=== PATIENT | female | born 1995 | race Caucasian/White ===

== ENCOUNTER 2018-03-03 12:22 | Outpatient (CLI) | payer OTHER, SELFPAY ==
[2018-03-03 13:42] LABS: ALT 19 U/L (12-78); AST 12 U/L (15-37); Albumin 4.2 g/dL (3.4-5.0); Alkaline Phosphatase 64 U/L (46-116); Bilirubin, Direct 0.26 mg/dL (0.00-0.20); Bilirubin, Total 1.2 mg/dL (0.2-1.0); TSH (W/Ref FT4) 3.41 uIU/mL (0.358-3.74)
== END 2018-03-03 12:42 ==
PROVIDERS: PCP Nurse Practitioner Family; Visit Provider Obstetrics & Gynecology Gynecology
DX: Z00.00 Encounter for general adult medical examination without abnormal findings (principal); E03.9 Hypothyroidism, unspecified
CPT/HCPCS: 36415; 80076; 84443

== ENCOUNTER 2018-12-03 15:59 | Outpatient (CLI) | payer OTHER, SELFPAY ==
[2018-12-03 17:14] LABS: TSH (W/Ref FT4) 3.77 uIU/mL (0.358-3.74)
== END 2018-12-03 16:19 ==
PROVIDERS: PCP Nurse Practitioner Family; Visit Provider Obstetrics & Gynecology Gynecology
DX: E03.9 Hypothyroidism, unspecified (principal)
CPT/HCPCS: 36415; 84439; 84443

== ENCOUNTER 2019-01-17 14:47 | Outpatient (CLI) | payer OTHER, SELFPAY ==
[2019-01-17 15:48] LABS: Abs Immature Grans 0.03 k/cumm (0.0-0.09); Absolute Basophil Count 0.02 k/cumm (0.0-0.2); Absolute Eosinophil Count 0.08 k/cumm (0.0-0.7); Absolute Lymphocyte Count 1.79 k/cumm (1.2-3.4); Absolute Monocyte Count 0.49 k/cumm (0.11-0.7); Absolute Neutrophil Count 7.43 k/cumm (1.2-6.7); Basophils % 0.2; Eosinophils % 0.8; HCT 34.3 % (36.0-46.0); HGB 11.4 g/dL (12.0-15.5); Immature Grans % 0.3; Lymphocytes % 18.2; Mean Corp. HGB Concentration 33.2 g/dL (32.0-36.0); Mean Corpuscular Hemoglobin 28.1 pg (27.0-33.0); Mean Corpuscular Volume 84.5 fL (80-95); Mean Platelet Volume 10.1 fL (8.0-11.0); Neutrophils % 75.5; Platelet Count 345 x1000/uL (130-400); RBC 4.06 m/cumm (4.00-5.20); RBC Distribution Width 13.4 % (11.7-14.6); White Blood Cell Count 9.84 k/cumm (4.4-10.8)
[2019-01-17 16:19] LABS: TSH (W/Ref FT4) 3.22 uIU/mL (0.36-3.74)
[2019-01-18 10:10] LABS: HIV-1/2 Ag & Ab Screen Negative (NEGAT)
[2019-01-18 10:11] LABS: Hepatitis B Surface Ag Negative (NEGAT); Hepatitis C Ab w Rflx HCV PCR Negative (NEGAT)
[2019-01-18 10:54] LABS: Varicella IgG Antibody Positive
[2019-01-18 14:23] LABS: Syphilis Total Ab w/Reflex Nonreactive (Nonreactive)
[2019-01-19 11:54] LABS: Rubella IgG Ab (UVM) Positive
== END 2019-01-17 15:07 ==
PROVIDERS: PCP Nurse Practitioner Family; Visit Provider Advanced Practice Midwife
DX: Z34.91 Encounter for supervision of normal pregnancy, unspecified, first trimester (principal); Z11.59 Encounter for screening for other viral diseases; Z11.4 Encounter for screening for human immunodeficiency virus [HIV]; Z01.84 Encounter for antibody response examination
CPT/HCPCS: 36415; 86787; 86803; 86850; 86900; 86901; 87340; 87389; 84443; 85025; 86762; 86780

== ENCOUNTER 2019-01-17 18:15 | Outpatient (REF) | payer OTHER, SELFPAY ==
[2019-01-17 17:33] LABS: *AMPHETAMINES SCREEN URINE Negative (Negative); *BARBITURATES SCREEN URINE Negative (Negative); *BENZODIAZEPINES SCREEN URINE Negative (Negative); Cannabinoids THC Negative (Negative); Cocaine Screen,Urine Negative (Negative); METHADONE URINE SCREEN Negative (Negative); OPIATES URINE SCREEN Negative (Negative)
[2019-01-17 17:34] LABS: Tricyclic Antidepressants Negative (Negative)
[2019-01-20 11:52] LABS: Buprenorphine Negative; Norbuprenorphine Negative
== END 2019-01-17 18:35 ==
LOC: LBN 18:15
PROVIDERS: PCP Nurse Practitioner Family; Visit Provider Advanced Practice Midwife
DX: Z34.90 Encounter for supervision of normal pregnancy, unspecified, unspecified trimester (principal)
CPT/HCPCS: 80307; 87086

== ENCOUNTER 2019-02-10 03:51 | Outpatient (CLI) | payer OTHER, SELFPAY ==
--- NOTE | 2019-02-10 15:15 | DI.US_ITS ---
SYMPTOMS/DIAGNOSIS: 18-WEEK ANATOMY SURVEY, Z34.90 OB ULTRASOUND: Predicted Gestational Age: Indication/History: 18+3 Wks Range: 17+3 to 19+3 Prior US done on: Determined by: First US LMP History EDC by prior US: 07/11/2019 For multiple gestations: Baby PLACENTA: Grade: 0-I Location: Anterior X Posterior PRESENTATION: RT LT LOW LYING PREVIA Cephalic Trans (Head RT LT ) Varied X Breech BIOMETRY: Anatomy Identified: BPD: 38 mm 17+4 wks 4-chamber Heart X Heart Rate 149 BPM HC: 142 mm 17+3 wks LVOT X Post Fossa X AC: 122 mm 17+6 wks RVOT X Ventricles X FL: 24 mm 17+1 wks Stomach X Nose X Bladder X Lips X Cisterna Magna: 3.6 mm CI: 84.4 Kidneys X Palate X Cerebellum: 1.74 cm 3-vessel cord X Spine X EFW: 200 grms 8% Cord Insertion X NS= not seen Composite Age (US) 17+4 wks Many abnormalities cannot be diagnosed. A normal exam does not exclude congenital abnormality. EDC by US: 07/17/2019 Amniotic Fluid Index: Normal TECHNOLOGIST COMMENTS: 0 pounds 7 ounces RUQ: LUQ: RLQ: LLQ: Total: cm Biophysical Profile: Score 0/2 EVA (>2cm) Respirations (>30 sec) Body flexion/extension Extremity flexion/extension TOTAL SCORE RADIOLOGIST COMMENTS: OB ultrasound was performed utilizing second trimester protocol. biometry is consistent with gestational age of 17 weeks 4 days and an EDC of 07/17/19. Placenta is fundal and posterior with no evidence of placenta previa. There is a normal quantity of amniotic fluid. anomaly screen is within normal limits. cardiac activity noted at a rate of 149 bpm.
== END 2019-02-10 04:11 ==
PROVIDERS: PCP Nurse Practitioner Family; Visit Provider Advanced Practice Midwife
DX: Z34.92 Encounter for supervision of normal pregnancy, unspecified, second trimester (principal)
CPT/HCPCS: 76805

== ENCOUNTER 2019-04-29 07:21 | Outpatient (CLI) | payer OTHER, SELFPAY ==
[2019-04-29 08:27] LABS: HCT 36.5 % (36.0-46.0); HGB 11.7 g/dL (12.0-15.5); Mean Corp. HGB Concentration 32.1 g/dL (32.0-36.0); Mean Corpuscular Hemoglobin 28.3 pg (27.0-33.0); Mean Corpuscular Volume 88.2 fL (80-95); Mean Platelet Volume 9.9 fL (8.0-11.0); Platelet Count 275 x1000/uL (130-400); RBC 4.14 m/cumm (4.00-5.20); White Blood Cell Count 9.44 k/cumm (4.4-10.8)
[2019-04-29 08:34] LABS: Glucose,1 Hr (Glucola) 125 mg/dL (80-140)
[2019-04-29 10:04] LABS: FREE T4 1.09 ng/dL (0.76-1.46); TSH 2.27 uIU/mL (0.36-3.74)
== END 2019-04-29 07:41 ==
PROVIDERS: PCP Nurse Practitioner Family; Visit Provider Advanced Practice Midwife
DX: O99.283 Endocrine, nutritional and metabolic diseases complicating pregnancy, third trimester (principal)
CPT/HCPCS: 36415; 82950; 85027; 84439; 84443

== ENCOUNTER 2019-05-26 15:46 | Outpatient (CLI) | payer OTHER, SELFPAY | END 2019-05-26 16:06 | PROVIDERS: PCP Nurse Practitioner Family; Visit Provider Advanced Practice Midwife | DX: O76 Abnormality in fetal heart rate and rhythm complicating labor and delivery (principal); Z3A.33 33 weeks gestation of pregnancy | CPT/HCPCS: 59025 ==

== ENCOUNTER 2019-06-13 17:23 | Outpatient (REF) | payer OTHER, SELFPAY | END 2019-06-13 17:43 | LOC: LBN 17:23 | PROVIDERS: PCP Nurse Practitioner Family; Visit Provider Advanced Practice Midwife | DX: Z34.93 Encounter for supervision of normal pregnancy, unspecified, third trimester (principal); Z36.85 Encounter for antenatal screening for Streptococcus B | CPT/HCPCS: 87081 ==

== ENCOUNTER 2019-07-09 10:51 | Outpatient (CLI) | payer OTHER, SELFPAY ==
[2019-07-09 12:01] LABS: TSH (W/Ref FT4) 3.56 uIU/mL (0.36-3.74)
== END 2019-07-09 11:11 ==
PROVIDERS: PCP Nurse Practitioner Family; Visit Provider Advanced Practice Midwife
DX: O99.283 Endocrine, nutritional and metabolic diseases complicating pregnancy, third trimester (principal); E03.9 Hypothyroidism, unspecified
CPT/HCPCS: 36415; 84443

== ENCOUNTER 2019-07-19 09:00 | Outpatient (CLI) | payer OTHER, SELFPAY | END 2019-07-19 09:20 | PROVIDERS: PCP Nurse Practitioner Family; Visit Provider Advanced Practice Midwife | DX: O48.0 Post-term pregnancy (principal); Z3A.41 41 weeks gestation of pregnancy | CPT/HCPCS: 59025 ==

== ENCOUNTER 2019-07-22 11:27 | Inpatient (IN) | payer OTHER, SELFPAY ==
[2019-07-22 11:51] LABS: HCT 39.1 % (36.0-46.0); HGB 13.1 g/dL (12.0-15.5); Mean Corp. HGB Concentration 33.5 g/dL (32.0-36.0); Mean Corpuscular Hemoglobin 29.2 pg (27.0-33.0); Mean Corpuscular Volume 87.3 fL (80-95); Mean Platelet Volume 11.1 fL (8.0-11.0); Platelet Count 299 x1000/uL (130-400); RBC 4.48 m/cumm (4.00-5.20); RBC Distribution Width 13.7 % (11.7-14.6); White Blood Cell Count 10.56 k/cumm (4.4-10.8)
[2019-07-22] MEDS: miSOPROStol 25 MCG TAB 50 MCG PO (11:55)
[2019-07-22] MEDS: Oxytocin 10 UNITS/ML VIAL (20:00)
[2019-07-22] MEDS: Lidocaine 1% Multi-Dose 20 ML VIAL (20:15)
[2019-07-23 06:42] LABS: HCT 35.7 % (36.0-46.0); Mean Corp. HGB Concentration 33.6 g/dL (32.0-36.0); Mean Corpuscular Hemoglobin 29.1 pg (27.0-33.0); Mean Corpuscular Volume 86.7 fL (80-95); Mean Platelet Volume 10.8 fL (8.0-11.0); Platelet Count 309 x1000/uL (130-400); RBC 4.12 m/cumm (4.00-5.20); RBC Distribution Width 13.5 % (11.7-14.6); White Blood Cell Count 19.76 k/cumm (4.4-10.8)
[2019-07-23] MEDS: Levothyroxine 75 MCG TAB PO (07:11)
[2019-07-23] MEDS: Hamamelis Leaf/Glycerin 100 EACH BOX PR (07:12)
[2019-07-24] MEDS: Levothyroxine 75 MCG TAB PO (07:56)
== END 2019-07-24 14:20 | disposition home or self-care (01) | DRG 806 ==
LOC: OBS 11:49
PROVIDERS: Admitting Provider Advanced Practice Midwife; PCP Nurse Practitioner Family; Visit Provider Advanced Practice Midwife
DX: O48.0 Post-term pregnancy (principal); O71.4 Obstetric high vaginal laceration alone; Z37.0 Single live birth; Z3A.41 41 weeks gestation of pregnancy; O70.1 Second degree perineal laceration during delivery; O76 Abnormality in fetal heart rate and rhythm complicating labor and delivery; O69.1XX0 Labor and delivery complicated by cord around neck, with compression, not applicable or unspecified; O99.284 Endocrine, nutritional and metabolic diseases complicating childbirth; E03.9 Hypothyroidism, unspecified
CPT/HCPCS: 36415; 85027; 86850; 86900; 86901; 59025; J2590; J3490

== ENCOUNTER 2019-09-27 01:18 | Outpatient (CLI) | payer OTHER, SELFPAY ==
[2019-09-27 15:59] LABS: FREE T4 1.69 ng/dL (0.76-1.46); TSH 0.01 uIU/mL (0.36-3.74)
[2019-09-27 21:24] LABS: T3,Free 7.7 pg/mL (2.8-5.3)
== END 2019-09-27 01:38 ==
PROVIDERS: PCP Nurse Practitioner Family; Visit Provider Advanced Practice Midwife
DX: E03.9 Hypothyroidism, unspecified (principal)
CPT/HCPCS: 36415; 84439; 84443; 84481

== ENCOUNTER 2019-11-21 01:59 | Outpatient (CLI) | payer OTHER, SELFPAY | END 2019-11-21 02:19 | PROVIDERS: Advanced Practice Midwife; PCP Nurse Practitioner Family; Visit Provider Advanced Practice Midwife | DX: E03.9 Hypothyroidism, unspecified (principal) | CPT/HCPCS: 36415; 84443 ==

== ENCOUNTER 2020-04-24 09:57 | Outpatient (CLI) | payer OTHER, SELFPAY ==
[2020-04-24 14:25] LABS: TSH (W/Ref FT4) 4.33 uIU/mL (0.36-3.74)
== END 2020-04-24 10:17 ==
PROVIDERS: PCP Nurse Practitioner Family; Visit Provider Nurse Practitioner Women's Health
DX: R63.4 Abnormal weight loss (principal)
CPT/HCPCS: 36415; 84439; 84443

== ENCOUNTER 2020-05-16 03:11 | Outpatient (CLI) | payer OTHER, SELFPAY ==
[2020-05-16 09:50] LABS: Abs Immature Grans 0.05 10^3/uL (0.0-0.06); Absolute Basophil Count 0.02 10^3/uL (0.0-0.2); Absolute Eosinophil Count 0.13 10^3/uL (0.0-0.7); Absolute Lymphocyte Count 1.84 10^3/uL (1.2-3.4); Absolute Monocyte Count 0.43 10^3/uL (0.1-0.8); Basophils % 0.2; Eosinophils % 1.5; HCT 37.1 % (36.0-46.0); HGB 12.5 g/dL (11.2-15.7); Immature Grans % 0.6; Lymphocytes % 21.5; MCH 28.7 pg (27.0-33.0); MCHC 33.7 % (32.0-36.0); MCV 85.3 fL (80-95); MPV 9.9 fL (8.0-11.0); Neutrophils % 71.2; Nucleated RBC 0 %; Platelet Count 365 10^3/uL (130-400); RBC 4.35 10^6/uL (3.93-5.22); RDW 12.7 % (11.7-14.6); RDW-SD 39.7 fL; WBC 8.57 10^3/uL (4.4-10.8)
[2020-05-17 09:50] LABS: HIV-1/2 Ag & Ab Screen Negative (Negative)
[2020-05-17 09:55] LABS: Varicella IgG Antibody Positive (See Note)
[2020-05-17 09:58] LABS: Rubella IgG Ab (UVM) Positive (See Note)
[2020-05-17 10:07] LABS: Hepatitis C Ab w Rflx HCV PCR Negative (Negative)
[2020-05-17 10:16] LABS: Hepatitis B Surface Ag Negative (Negative)
[2020-05-18 11:18] LABS: Syphilis Total Ab w/Reflex Nonreactive (Nonreactive)
== END 2020-05-16 03:31 ==
PROVIDERS: PCP Nurse Practitioner Family; Visit Provider Advanced Practice Midwife
DX: Z34.91 Encounter for supervision of normal pregnancy, unspecified, first trimester (principal); Z11.59 Encounter for screening for other viral diseases; Z11.4 Encounter for screening for human immunodeficiency virus [HIV]; Z01.84 Encounter for antibody response examination; Z3A.14 14 weeks gestation of pregnancy
CPT/HCPCS: 36415; 86787; 86803; 86850; 86900; 86901; 87340; 87389; 85025; 86762; 86780

== ENCOUNTER 2020-05-23 16:24 | Outpatient (REF) | payer OTHER, SELFPAY ==
--- NOTE | 2020-05-23 15:50 | PAPFT_PTH ---
PATIENT: Anel Frazier LOC: [facility] U#:[id number] AGE/SX: 25/F ROOM: RE05/23/[address]: Tameka Van : 1995 BED: DIS: 05/23/2020 SPEC #: [id number] RECD: 05/23/20 18:06 STATUS: HESHAM REQ #: [id number] EMILIA: 05/23/20 15:[address]: Tameka Van DEPT: [facility] Cytology RECD BY: Hilary Briceño ENTERED: 05/23/20 18:06 SP TYPE: PAPFT OTHR DR: Aisha Brewster Tissues: 1 - CX/ENDOCX FOR PAP SMEARS Procedures: PAP THIN PREP/UVM Screening Comments: [id number] (CHLAMYDIA/GC)
[2020-05-23 17:22] LABS: *AMPHETAMINES SCREEN URINE Negative (Negative); *BARBITURATES SCREEN URINE Negative (Negative); *BENZODIAZEPINES SCREEN URINE Negative (Negative); Cannabinoids THC Negative (Negative); Cocaine Screen,Urine Negative (Negative); METHADONE URINE SCREEN Negative (Negative); OPIATES URINE SCREEN Negative (Negative)
[2020-05-23 17:24] LABS: Tricyclic Antidepressants Negative (Negative)
[2020-05-24 15:13] LABS: Chlamydia Result Negative (Negative); GC Result Negative (Negative)
[2020-05-29 13:31] LABS: Buprenorphine Negative; Norbuprenorphine Negative
== END 2020-05-23 16:44 ==
LOC: LBN 16:24
PROVIDERS: Advanced Practice Midwife; PCP Nurse Practitioner Family; Visit Provider Advanced Practice Midwife
DX: Z34.91 Encounter for supervision of normal pregnancy, unspecified, first trimester (principal); Z11.3 Encounter for screening for infections with a predominantly sexual mode of transmission; Z12.4 Encounter for screening for malignant neoplasm of cervix; Z3A.14 14 weeks gestation of pregnancy
CPT/HCPCS: 80307; 87491; 87591; 88142; 87086

== ENCOUNTER 2020-06-20 02:14 | Outpatient (CLI) | payer OTHER, SELFPAY ==
--- NOTE | 2020-06-20 08:00 | DI.US_ITS ---
EXAM: US OB 2-3 TRIMESTER CLINICAL HISTORY: , anatomy scan,Z34.90. TECHNIQUE: Transabdominal obstetrical ultrasound was performed. COMPARISON: US US PELVIS LIMITED from 05/24/2020 FINDINGS: There is a single viable intrauterine gestation with cardiac activity identified-141 bpm. Amniotic fluid: There is a normal amount of amniotic fluid. Placental location: The placenta is posterior grade 1,with no evidence of placenta previa. ANATOMY: A 3 vessel umbilical cord is seen. A four-chamber cardiac view was obtained. Right and left ventricular outflow tracts were imaged. There are no obvious abnormalities of the spinal column evident. There is no obvious abnormal ity of the anterior abdominal wall. stomach and urinary bladder are identified and there is no evidence of hydronephrosis. No abnormalities of the upper lip region are identified. No evidence of choroid plexus cysts i n the brain. Dating parameters place this at approximately 20 weeks gestational age. BPD measures 20 weeks and 5 days HC measures 20 weeks and 1 day AC measures 19 weeks 0 days FL measures 20 weeks and 1 day Estimated weight is 302 gm-0 pounds 11 ounces Fetus is at the 80th percentile on the Hadlock scale. IMPRESSION:: Single viable intrauterine gestation which is approximately 20 weeks gestational age, i mplying an YVETTE of November 07, 2020. There are no obvious anomalies evident on today's study. The placenta is posterior with no evidence of placenta previa. There is a normal amount of amniotic fluid. DATA REPOSITORY:
== END 2020-06-20 02:34 ==
PROVIDERS: PCP Nurse Practitioner Family; Visit Provider Advanced Practice Midwife
DX: Z34.92 Encounter for supervision of normal pregnancy, unspecified, second trimester (principal)
CPT/HCPCS: 76805

== ENCOUNTER 2020-07-04 03:22 | Outpatient (CLI) | payer OTHER, MEDICAID, SELFPAY ==
[2020-07-04 12:26] LABS: FREE T4 1.13 ng/dL (0.76-1.46); TSH 2.79 uIU/mL (0.36-3.74)
== END 2020-07-04 03:42 ==
PROVIDERS: PCP Nurse Practitioner Family; Visit Provider Advanced Practice Midwife
DX: E03.9 Hypothyroidism, unspecified (principal)
CPT/HCPCS: 36415; 84439; 84443

== ENCOUNTER 2020-08-28 03:47 | Outpatient (CLI) | payer OTHER, MEDICAID, SELFPAY ==
[2020-08-28 16:03] LABS: Glucose,1 Hr (Glucola) 134 mg/dL (80-140)
[2020-08-28 16:19] LABS: HCT 35.6 % (36.0-46.0); HGB 11.6 g/dL (11.2-15.7); MCHC 32.6 % (32.0-36.0); MPV 10.2 fL (8.0-11.0); Platelet Count 273 10^3/uL (130-400); RDW 13.4 % (11.7-14.6); RDW-SD 43.9 fL; WBC 10.02 10^3/uL (4.4-10.8)
[2020-08-28 17:14] LABS: FREE T4 1.16 ng/dL (0.76-1.46); TSH 2.69 uIU/mL (0.36-3.74)
== END 2020-08-28 03:48 | disposition home or self-care (01) ==
LOC: LBO 03:47
PROVIDERS: PCP Nurse Practitioner Family; Visit Provider Advanced Practice Midwife
DX: O99.283 Endocrine, nutritional and metabolic diseases complicating pregnancy, third trimester (principal); E03.9 Hypothyroidism, unspecified
CPT/HCPCS: 36415; 82950; 85027; 84439; 84443

== ENCOUNTER 2020-09-25 01:30 | Outpatient (CLI) | payer OTHER, MEDICAID, SELFPAY ==
--- NOTE | 2020-09-25 06:45 | DI.US_ITS ---
EXAM: US OB EVA WEIGHT CLINICAL HISTORY: h/o previous IUGR,z87.59 TECHNIQUE: Ultrasound performed using standard protocol. COMPARISON: US US OB 2-3 TRIMESTER from 06/20/2020 FINDINGS: Ob ultrasound was performed utilizing 3rd trimester protocol. biometry is consistent with gestational age of 32 weeks 4 days and an EDC of November 16. The estimated weight is 1962 grams which is at the 27th percentile for predicted gestational ag e. There is visually a normal quantity of amniotic fluid and the EVA is 19. heart rate is 125 BPM . Placenta is posterior with no placenta previa. IMPRESSION: DATA REPOSITORY:
== END 2020-09-25 01:50 ==
PROVIDERS: PCP Nurse Practitioner Family; Visit Provider Advanced Practice Midwife
DX: Z34.93 Encounter for supervision of normal pregnancy, unspecified, third trimester (principal); Z3A.32 32 weeks gestation of pregnancy; Z87.59 Personal history of other complications of pregnancy, childbirth and the puerperium
CPT/HCPCS: 76816

== ENCOUNTER 2020-10-17 11:47 | Outpatient (REF) | payer OTHER, MEDICAID, SELFPAY ==
[2020-10-17 11:27] LABS: *AMPHETAMINES SCREEN URINE Negative (Negative); *BARBITURATES SCREEN URINE Negative (Negative); *BENZODIAZEPINES SCREEN URINE Negative (Negative); Cannabinoids THC Negative (Negative); Cocaine Screen,Urine Negative (Negative); METHADONE URINE SCREEN Negative (Negative); OPIATES URINE SCREEN Negative (Negative); Tricyclic Antidepressants Negative (Negative)
[2020-10-20 09:47] LABS: Buprenorphine Negative ng/mL (Cutoff: 5.0); Norbuprenorphine Negative ng/mL (Cutoff: 2.5)
== END 2020-10-17 11:48 | disposition home or self-care (01) ==
LOC: LBN 11:47
PROVIDERS: PCP Nurse Practitioner Family; Visit Provider Advanced Practice Midwife
DX: Z34.93 Encounter for supervision of normal pregnancy, unspecified, third trimester (principal); Z36.85 Encounter for antenatal screening for Streptococcus B; Z3A.36 36 weeks gestation of pregnancy
CPT/HCPCS: 80307; 87081

== ENCOUNTER 2020-10-29 15:56 | Outpatient (CLI) | payer OTHER, MEDICAID, SELFPAY ==
[2020-10-29 16:12] VITALS: BP 123/76; PULSE 72; TEMP 36.7
[2020-10-29 16:22] VITALS: BP 123/76; PULSE 72
--- NOTE | 2020-10-29 16:35 | PDOC.NST_ITS ---
Date of service: 10/29/20 Time of Service: 16:15 NST Evaluation Reason for NST Reasons for Nonstress Test: DECREASED MOVEMENT Gestational Age Gestational Age in Weeks and Days: 37 Weeks and 5Days Test and Monitor Explained Test/Monitor Explained: Test Explained, Monitor Explained and Patient Verbalized Understanding Vital Signs Blood Pressure: 123/76 Pulse: 72 Temperature: 98.1 F Urine Results Urine Protein: Negative Urine Ketones: Negative Urine Glucose: Negative Urine Blood: Negative NST Information Date on Monitor: 10/29/20 Time on Monitor: 16:03 Date off Monitor: 10/29/20 Time off Monitor: 16:28 Total Time on Monitor: 25 NST Interventions: None Contraction Frequency: 6-8 NST Evaluation Patient States Movement: Present FHR Baseline: 125 Variability: Moderate 6-25 bpm Accelerations: 15x15 Decelerations: None NST Results: Reactive Note NST Note Note: Anel presented after her office visit due to CNM concern that baby did not respond to abdominal palpation to illicit movement and difficulty hearing any FHR variation with doppler. NST is immediately reactive and reassuring and patie nt is aware of and marking movement. She is aware of abdominal tightening when toco shows contractions but she is not uncomfortable with them. Denies LOF or bleeding. Will keep next scheduled appointment or call Web Coordinator cotton inspector as needed for signs of labor or concerns for decreased movement. JOSE MANUEL NST Reviewed and Verified by: Tameka Espinoza
[2020-10-29 16:38] VITALS: BP 123/76; PULSE 72; TEMP 36.7
== END 2020-10-29 16:30 | disposition home or self-care (01) ==
LOC: BCD 15:59 → OBS 16:11
PROVIDERS: PCP Nurse Practitioner Family; Visit Provider Advanced Practice Midwife
DX: O36.8130 Decreased fetal movements, third trimester, not applicable or unspecified (principal); Z3A.37 37 weeks gestation of pregnancy
CPT/HCPCS: 59025

== ENCOUNTER 2020-11-03 17:00 | Inpatient (IN) | payer OTHER, MEDICAID, SELFPAY ==
[2020-11-03] VITALS (9 sets, daily range): BP systolic 106–148; BP diastolic 54–80; PULSE 62–98; RESP 18; TEMP 37–37.3
[2020-11-03] MEDS: Oxytocin 10 UNITS/ML VIAL IM (17:28)
--- NOTE | 2020-11-03 18:04 | HPE_ITS ---
Date of service: 11/03/20 Time of Service: 18:04 Assessment and Plan Assessment and plan (1) Spontaneous onset of labor: Status: Acute Assessment and plan: Admit to Center. Anel had apporoximately 3 contractions upon arrival and ruptured her membranes spontaneously and delivered precipitously attended by Marian Fritz RN. The cord was clamped and cut by Marian HERNANDEZ and I arrived shortly after the cord was cut. OB-HPI Labor/Delivery History of Present Illness Reason for Visit: labor Chief Complaint: Uterine Contractions. YVETTE Calculator Estimated Delivery Date Method Current WG Current Estimate 11/14/20 LMP (Certain) 38w 3d Other Estimates 11/10/20 Ultrasound #1 39w 0d Comments: I received a page at 1630 from Anel stating and that she was headed to the center. I attempted to call her but got her voicemail. I called her a few minutes later and she said that her contractions were 5 minutes apart but some were mild. She was pushing on arrival and was examined by the RN and she was fully dilated. She delivered less than ten minutes after arrival at the center at 1708. ( see delivery note) History of Present Expected Delivery Route/Plan - CNM FOB/ - Kostas Frazier BB yes to circ Desires to use the labor tub, open to waterbirth GBS neg Specific Issues/Plan 1. Hypothyroidism, on levothyroxine 75 mcg qd (increased from 50 mcg 04/24/20) 2a. TSH/T4 end of June 2020, nml results 07/04: TSH 2.79/T4 1.13 2b. TSH/T4 third trimester (28 wks) TSH 2.69/T4 1.16 2. Close spacing, conceived at 7 months , planned 3. Dating sono by Dr. Mccloud revealed heart shaped uterus, baby located on left side 4. Vaginal septum discovered at last delivery, vaginal repair done with CNRamon and 4a. Will perform careful vaginal inspection next visit (05/23) and PAP if not painful 4b. [facility] 4c. Declines US at [facility], pelvic exam 05/23 WNL - consult w/Dr. Varghese, Sono scheduled for 15 wks for uterine anatomy, 19 week anatomy scan at 4d. 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 5. Hx IUGR ( at 41 wks). Will discuss indication for growth scans in third trimester, discussed with patient , MD consult re: antepartum testing schedule. 5a. per MD consult, serial growth scans in third trimester, 32 and 36 wk 5b. 32 weeks - EVA 19, 27%ile, repeat at 36 wks 5c. On 10/09, pt declines 36 wk sono, will consent to 2nd EFW if exam indicates need. 6. Declines genetic testing. 7. Plans to receive Covid vaccine. On 10/09, has rec'ed first dose Moderna, see PN narrative [facility] Medical History (Updated 11/03/20 @ 18:05 by Tameka Van CNM) 2 weeks follow-up History of transverse vaginal septum bissected spontaneously with vaginal delivery 05/27 Hypothyroid Dx 2015. Rx with Levoxyl. 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 Family History (Updated 01/17/19 @ 13:30 by Lexi Aguilar LPN) Mother Mental disorder szichophrenic Maternal Grandmother Diabetes Diet controlled Paternal Grandfather Diabetes Insulin dependent Maternal Grandfather Hypertension Social History (Updated 01/17/19 @ 13:32 by Lxei Aguilar LPN) Smoking/Tobacco Use Status: Never Smoking risk assessment performed?: Yes Alcohol Intake: former Details: Prior to knowledge of , and then only 1 or 2 drinks occaisionally Drug use: Never Substance use type: does not use Female Reproductive History Menstrual Age of Menarche: 12 Duration of menses: 3-5 days control method: none History History 2 Para 1 Hx # Term Pregnancies 1 Multiple births 0 Hx # Pregnancies 0 Ectopic pregnancies 0 AB induced 0 Hx Number of Living Children 1 AB spontaneous 0 Past Pregnancies Del. Date GA/Weeks # Outcome Route Wgt Sex Labor Lgth Anesthes ia Location Prov Complic 07/22/19 41 No Successful vaginal 5 lb 14 oz Male 3hrs 58 min PETROS Kitchen Delivery Date: 07/22/19 Patient induced post-dates; tight nuchal cord; 2nd degree perineal laceration repaired. vaginal septum noted during second stage, bisected spontaneously with . Mulkern,Tameka Meds Allergies and Home Medications Allergies Allergy/AdvReac Type Severity Reaction Status Date / Time No Known Drug Allergies Allergy Verified 10/29/20 15:30 Home Medications Medication Instructions Recorded Confirmed Type multivitamin [Multi-Vitamin Daily] 1 ea PO DAILY 05/22/16 05/23/20 History vitamin B complex 1 tab PO DAILY tab 01/17/19 05/23/20 History prenat.vits,deny,[id number]-[id number] 1 tab PO DAILY 03/11/19 05/23/20 History levothyroxine 75 mcg tablet 75 mcg PO DAILY #90 tab 04/24/20 05/23/20 Rx Exam Physical Exam Vital signs: Pulse BP 71 113/74 11/03/20 18:01 11/03/20 18:01 Detailed Labor and Delivery Exam Campbell Score: Cervical Points Exam 0 1 2 3 Dilation Closed 1-2cm 3-4 cm 5-6cm Effacement 0-30% 40-50% 60-70% 80% Consistency Firm Medium Soft Station -3 -2 -1,0 +1,+2 Position Posterior Mid Anterior Fetus A Date of Membrane Rupture: 11/03/20 Time of Membrane Rupture: 17:08 Results Results Group Beta Strep: Negative Risk Assessment Risk for Shoulder Dystocia Historical/Initial OB: NEGATIVE FOR: Pelvic Abnormality, Pre- BMI>30, Previous Shoulder Dystocia or Previous Macrosomia 40 Weeks: NEGATIVE FOR: EFW> 4500 gms, Maternal Weight Gain >40lb or Post Dates Increased Risk?: No Risk for Pre-Eclampsia Daily Dose ASA Indicated: No Yes, if one or more: NEGATIVE FOR: Hx Pre-E/Gest HTN, Chronic HTN, Multiple Gestation, Pre-gestational DM, Renal Disease, Systemic Lupus or APA Syndrome Yes, if 2 or more: POSITIVE FOR: Previous IUGR; NEGATIVE FOR: Nulliparity, Age>= 35 yrs, >10yr btwn pregnancies, BMI>30, ethinicty or Mother/Sister w/ Pre-E Risk for Post- Hemorrhage Initial: NEGATIVE FOR: Multiple Gestation, Previous PPH, Known Clotting Deficiency, Grand Multiparity or Anticoagulation At Risk?: No Risks Reviewed Risks Reviewed Upon Admission: Yes
--- NOTE | 2020-11-03 18:25 | W.OBDELIVERY ---
Date of service: 11/03/20 Time of Service: 18:25 OB Labor/ Delivery Information Baby A Delivery Delivery Method: Spontaneaous Presentation: Cephalic Cephalic Position: Vertex Vertex Position: Right Occipital Anterior Cord Description-Baby A: 3 Vessels Amniotic Fluid: Clear Estimated Blood Loss: 500 Delivery Outcome: Liveborn Providers Nurse: Marian Fritz Nurse: Arianna Cook Labor/Delivery Information Number of Babies in Womb: 1 Steroids Given: None Reason Steroids Not Administered: N/A Group Beta Strep: Negative Antibiotics Administered: No Rubella Status: Immune Blood Type: O+ Varicella Immunity: Immune Medication in Delivery: none Maternal Complications: None Shoulder Dystocia: No Note: Anel was pushing on arrival and ruptured her membranes spontaneously and delivered on her hands and knees attended by Marian Fritz RN. FHTs were not obtained prior to delivery due to precipitous delivery on arrival. Spontaneous delivery of male infant delivered in CHRISTINA position. Baby was placed on mother's abdomen and dried and stimulated. Spontaneous cry. Cord was clamped and cut by Marian Fritz. I arrived after the cord was clamped. The placenta delivered spontaneously and appears to by intact with a three vessel cord. Pitocin 10 units was administered after delivery of the placenta. The perineum was inspected and it was small but appears to be intact with a three vessel cord. The baby did breastfeed well. She was having a trickle of bright blood and the right horn of her bicornuate uterus was massaged by bimanual exam assisted by the RN for a large amount of clots. The uterus after massage, was 2 FB below umbilicus and firm. cytotec 400 Mcg given PO. After delivery, Mother and baby Lambert and father of the baby were stable and bonding well in the delivery room and there were no complications. Stages of Labor Onset of Labor Date: 11/02/20 Onset of Labor Time: 19:58 Complete Dilatation Date: 11/03/20 Complete Dilatation Time: 17:00 Labor - Stage 1 Duration: 24 hours and 0 minutes ROM Baby A: 11/03/20 ROM Baby A: 17:08 ROM Total Time- Baby A: [id number] Delivery Date-Baby A: 11/03/20 Infant Delivery Time-Baby A: 17:08 Labor Stage 2 Duration: 8 minutes Placenta Delivery Date-Baby A: 11/03/20 Placenta Delivery Time-Baby A: 17:22 Labor-Stage 3 Duration: 14 minutes Total Length of Labor-Baby A: 21 hours and 10 minutes Placenta Status: Delivered Baby A Gender: Male Gestational Status: Term (39-41.6 wks) Gestational Age in Weeks/Days: 38 Weeks and 3 Days Score-1 Minute Interval(Baby A) Heart Rate-1 minute: 100 BPM or Greater Respiratory Effort- 1 minute: Spontaneous/Strong Cry Muscle Tone-1 minute: Active Movement Reflex Response-1 minute: Prompt Response Color-1 minute: Bluish Hands or Feet Total Score-1 minute: 9 Score-5 Minute Interval(Baby A) Heart Rate- 5 minute: 100 BPM or Greater Respiratory Effort-5 minute: Spontaneous/Strong Cry Muscle Tone-5 minute: Active Movement Reflex Response-5 minute: Prompt Response Color-5 minute: Bluish Hands or Feet Total Score- 5 minute: 9 Interventions Repair of Laceration Type: Perineal , Laceration Extension: First Degree . Sponge Count Correct: No Sponges Placed in Vagina , Sharp Count Correct: Yes . Laceration Repair Note: repair with 3-0 vicryl suture under local anesthetic which Tia tolerated well.
[2020-11-03 18:26] LABS: HCT 36.3 % (36.0-46.0); HGB 12.3 g/dL (11.2-15.7); MCH 29.3 pg (27.0-33.0); MCHC 33.9 % (32.0-36.0); MCV 86.4 fL (80-95); MPV 11.2 fL (8.0-11.0); Platelet Count 293 10^3/uL (130-400); RDW 13.3 % (11.7-14.6); RDW-SD 41.3 fL; WBC 15.27 10^3/uL (4.4-10.8)
[2020-11-03] MEDS: Methylergonovine 0.2 MG TAB PO (19:53)
[2020-11-03 22:15] LABS: Source Nasal/Nares
[2020-11-04] MEDS: Methylergonovine 0.2 MG TAB PO ×5 (00:03→17:34)
[2020-11-04 00:31] LABS: COVID-19 PCR Negative (Negative)
[2020-11-04 08:00] VITALS: BP 116/75; PULSE 75; RESP 18; TEMP 36.7; O2SAT 98
[2020-11-04] MEDS: Levothyroxine 75 MCG TAB PO (08:47)
--- NOTE | 2020-11-04 14:01 | OBPPV_ITS ---
Date of service: 11/04/20 Time of Service: 14:04 Assessment and Plan Assessment and plan (1) Normal vaginal delivery: Status: Acute Assessment and plan: Caring for baby independently. Pain is managed well with oral analgesics. Voiding without difficulty. well. methergine series started due to bicornuate uterus and EBL 500 cc. A - stable mother and baby , Post day 1 P - Discharge to home tomorrow . H and H tomorrow. Subjective Subjective Patient comments: Pain well controlled baby status: Doing well [place] feeding status: Exclusively breast feeding Exam Physical Exam Vital signs: Temp Pulse Resp BP 99.1 F 67 18 118/80 11/03/20 22:42 11/03/20 22:42 11/03/20 22:42 11/03/20 23:35 Vital Signs Reviewed: Yes Constitutional Constitutional: no acute distress Respiratory Exam Respiratory Exam: Normal Cardiovascular Exam Cardiovascular Exam: Normal Abdominal Exam Abdomen: Tender (cramping and back ache) Fundal Exam Fundus: Below Umbilicus Extremities Exam Extremity Exam: Normal Skin Exam Skin Exam: Normal Psychiatric Exam Psychiatric Exam: Normal Results Hemoglobin/Hematocrit: Hgb 12.3 g/dL (11.2-15.7) 11/03/20 18:13 Hct 36.3 % (36.0-46.0) 11/03/20 18:13 Abnormal Lab Findings: Abnormal Labs 11/03/20 18:13 WBC 15.27 H MPV 11.2 H
[2020-11-04 20:32] VITALS: BP 117/76; PULSE 90; RESP 16; TEMP 36.7; O2SAT 97
[2020-11-05] MEDS: Levothyroxine 75 MCG TAB PO (07:02)
--- NOTE | 2020-11-05 08:13 | DSE_ITS ---
Date of service: 11/05/20 Time of Service: 08:14 DS: Diagnosis Discharge Diagnosis (1) Normal vaginal delivery: Status: Acute Asessment and Plan: Caring for baby independently. Pain is managed well with oral analgesics. Voiding without difficulty. well. A - stable mother and baby , Post day 2 P - Discharge to home. Routine post instructions. [facility] Planning POP for contraception. Discharge Plan Discharge Details Reason For Visit: labor Admit Date/Time: 11/03/20 18:00 Admit Provider: Tameka Van Attending Provider: Tameka Van Primary Care Provider: Aisha Brewster Home Meds and New Rx's Prescriptions: No Action prenat.vits,deny,umg-tkjh-pszct Tablet 1 tab PO DAILY RF: 0 multivitamin [Daily Multi-Vitamin] 1 EACH tablet 1 ea PO DAILY RF: 0 vitamin B complex [B-Complex] Tablet 1 tab PO DAILY RF: 0 levothyroxine 75 mcg tablet 75 mcg PO DAILY Qty: 90 RF: 3 Discharge Instructions Activity:: Activity as Tolerated Activity:: Activity as Tolerated Equipment/Supplies:: No Equipment Needed Diet:: As Tolerated OB:DS Summary Summary Vaginal Delivery Method: Spontaneaous Episiotomy Description: None Laceration Description: Perineal Laceration Extension: First Degree Contraception Discussed Contraception Discussed: Yes (POP), Infant Gender-Baby A: Male weight: 5 lb 5.892 oz Status at Discharge Functional status at discharge: independent ambulation Overall status at discharge: patient is back to baseline Mental Status: mental status grossly normal Speech and Movement: speech and movement normal Mood: congruent mood Affect: normal affect Exam Physical Exam Vital signs: Temp Pulse Resp BP Pulse Ox 98.1 F 90 16 117/76 97 11/04/20 20:32 11/04/20 20:32 11/04/20 20:32 11/04/20 20:32 11/04/20 20:32 Vital Signs Reviewed: Yes Constitutional Constitutional: no acute distress Respiratory Exam Respiratory Exam: Normal Cardiovascular Exam Cardiovascular Exam: Normal Fundal Exam Fundus: Below Umbilicus and Firm Extremities Exam Extremity Exam: Normal Skin Exam Skin Exam: Normal Psychiatric Exam Psychiatric Exam: Normal [facility] Medical History (Updated 11/04/20 @ 14:04 by Tameka Van CNM) 2 weeks follow-up History of transverse vaginal septum bissected spontaneously with vaginal delivery 05/27 Hypothyroid Dx 2015. Rx with Levoxyl. 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 Family History (Updated 01/17/19 @ 13:30 by Lexi Aguilar LPN) Mother Mental disorder szichophrenic Maternal Grandmother Diabetes Diet controlled Paternal Grandfather Diabetes Insulin dependent Maternal Grandfather Hypertension Social History (Updated 01/17/19 @ 13:32 by Lexi Aguilar LPN) Smoking/Tobacco Use Status: Never Smoking risk assessment performed?: Yes Alcohol Intake: former Details: Prior to knowledge of , and then only 1 or 2 drinks occaisionally Drug use: Never Substance use type: does not use Female Reproductive History Menstrual Age of Menarche: 12 Duration of menses: 3-5 days control method: none History History 2 Para 1 Hx # Term Pregnancies 1 Multiple births 0 Hx # Pregnancies 0 Ectopic pregnancies 0 AB induced 0 Hx Number of Living Children 1 AB spontaneous 0 Past Pregnancies Del. Date GA/Weeks # Outcome Route Wgt Sex Labor Lgth Anesthes ia Location Prov Complic 07/22/19 41 No Successful vaginal 5 lb 14 oz Male 3hrs 58 min PETROS Kitchen Delivery Date: 07/22/19 Patient induced post-dates; tight nuchal cord; 2nd degree perineal laceration repaired. vaginal septum noted during second stage, bisected spontaneously with . Tameka Van DS: Data Vitals/I&O Vitals and I&O: Vital Signs Temperature 98.1 F 11/04/20 20:32 Pulse 90 11/04/20 20:32 Pulse Rhythm Regular 11/05/20 07:15 Respiratory Rate 16 11/04/20 20:32 Respiratory Depth Normal 11/04/20 20:32 Blood Pressure 117/76 11/04/20 20:32 Blood Pressure Mean 89 11/04/20 20:32 Pulse Oximetry 97 11/04/20 20:32 Comment 11/03/20 23:35 Intake & Output 11/04/20 11/04/20 11/05/20 11:59 23:59 11:59 Intake Total 3000 / 3000 Output Total 400 / 850 450 / 850 Balance -400 / 2150 2550 / 2150 Intake: Oral 3000 / 3000 Output: Urine 400 / 850 450 / 850 Other: Urine Color Yellow Yellow Data Completed and Pending Labs on day of discharge: Labs from last 24 hours 11/05/20 08:00 WBC Pending RBC Pending Hgb Pending Hct Pending MCV Pending MCH Pending MCHC Pending RDW Pending Plt Count Pending MPV Pending
[2020-11-05 08:52] LABS: HCT 32.4 % (36.0-46.0); MCH 29.4 pg (27.0-33.0); MCV 86.6 fL (80-95); MPV 11.2 fL (8.0-11.0); Platelet Count 219 10^3/uL (130-400); RBC 3.74 10^6/uL (3.93-5.22); RDW 13.8 % (11.7-14.6); WBC 11.83 10^3/uL (4.4-10.8)
== END 2020-11-05 11:50 | disposition home or self-care (01) | DRG 807 ==
PROVIDERS: Admitting Provider Advanced Practice Midwife; PCP Nurse Practitioner Family; Visit Provider Advanced Practice Midwife
DX: O99.284 Endocrine, nutritional and metabolic diseases complicating childbirth (principal); Z37.0 Single live birth; O62.3 Precipitate labor; Z3A.38 38 weeks gestation of pregnancy; E03.9 Hypothyroidism, unspecified; O34.03 Maternal care for unspecified congenital malformation of uterus, third trimester; Q51.3 Bicornate uterus
CPT/HCPCS: 36415; 85027; 86850; 86900; 86901; 87635; 96372; J2590

== ENCOUNTER 2020-12-17 03:14 | Outpatient (CLI) | payer MEDICAID, SELFPAY ==
[2020-12-17 12:24] LABS: FREE T4 1.28 ng/dL (0.76-1.46); TSH 0.13 uIU/mL (0.36-3.74)
[2020-12-17 13:12] LABS: HCT 38.6 % (36.0-46.0); HGB 12.2 g/dL (11.2-15.7); MCH 28.2 pg (27.0-33.0); MCHC 31.6 % (32.0-36.0); MCV 89.4 fL (80-95); MPV 9.9 fL (8.0-11.0); Platelet Count 337 10^3/uL (130-400); RBC 4.32 10^6/uL (3.93-5.22); RDW 11.9 % (11.7-14.6); RDW-SD 38.8 fL; WBC 6.17 10^3/uL (4.4-10.8)
== END 2020-12-17 03:15 | disposition home or self-care (01) ==
LOC: LBO 03:14
PROVIDERS: Advanced Practice Midwife; PCP Nurse Practitioner Family; Visit Provider Advanced Practice Midwife
DX: E03.9 Hypothyroidism, unspecified (principal); Z39.2 Encounter for routine postpartum follow-up
CPT/HCPCS: 36415; 85027; 84439; 84443

== ENCOUNTER 2023-01-02 12:23 | Outpatient (REF) | payer BC, SELFPAY ==
--- NOTE | 2023-01-02 12:00 | PAPFT_PTH ---
PATIENT: Anel Frazier LOC: [facility] U#:[id number] AGE/SX: 27/F ROOM: RE01/02/[address]: Sylwia Varghese : 1995 BED: DIS: 01/02/2023 SPEC #: [id number] RECD: 01/02/23 13:10 STATUS: HESHAM RERemedios #: [id number] EMILIA: 01/02/23 12:[address]: Sylwia Varghese DEPT: [facility] Cytology RECD BY: Hilary Briceño ENTERED: 01/02/23 13:11 SP TYPE: PAPFT OTHR DR: Aisha Brewster Tissues: 1 - CX/ENDOCX FOR PAP SMEARS Procedures: PAP THIN PREP/UVM Screening Comments: [id number]
== END 2023-01-02 12:24 | disposition home or self-care (01) ==
LOC: LBN 12:23
PROVIDERS: PCP Nurse Practitioner Family; Visit Provider Obstetrics & Gynecology Gynecology
DX: Z12.4 Encounter for screening for malignant neoplasm of cervix (principal)
CPT/HCPCS: 88142